=== PATIENT | female | born 1950 | race American Indian/Alaskan Native ===

== ENCOUNTER 2018-05-17 15:22 | Outpatient (CLI) | payer OTHER | END 2018-05-17 15:23 | disposition home or self-care (01) | LOC: LABHHL 15:22 | PROVIDERS: ATTEND Surgery | DX: N63.20 Unspecified lump in the left breast, unspecified quadrant (principal) | CPT/HCPCS: 88305; 88342; 88361 ==

== ENCOUNTER 2018-05-29 09:44 | Outpatient (CLI) | payer MEDICARE ==
--- NOTE | 2018-05-29 16:59 | Magnetic Resonance Report ---
BILATERAL BREAST MRI WITHOUT AND WITH CONTRAST: 05/29/18 09:44:00 CLINICAL: Newly diagnosed left breast cancer. Status post left ultrasound guided needle biopsy 09/15/18 with pathologic diagnosis of invasive ductal carcinoma NOS, Nunda grade III. COMPARISON:05/14/18 bilateral mammogram. TECHNIQUE: Axial 1.0-mm T1 without, axial high resolution 2.0-mm T2 and axial 1.0-mm dynamic Vibrant high-resolution postcontrast T1 fat saturation sequences on a 1.5 Joleen magnet. The examination was performed with an 8 channel dedicated [employer] breast coil. Post processing with CAD and subtraction was performed on an [email or web address] workstation. 15.0 cc of Multihance was injected without incident for the contrast portion of the exam. Consent was obtained prior to the administration of the contrast. FINDINGS: Right: Minimal background parenchymal enhancement. No mass or suspicious enhancement. No suspicious lymph nodes. Left: Mild background parenchymal enhancement. The known cancer is an irregular enhancing mass at 1 o'clock 7.3 cm from the nipple measuring 3.2 x 2.4 x 2.6 cm. It contains a biopsy clip and demonstrates heterogeneous enhancement with mixed kinetics, 358% peak enhancement, 13% type I persistent, 30% type II plateau and 57% type III washout. No other mass or suspicious enhancement of the left breast. A single suspicious lymph node in the axillary tail has minimal central fat and measures 1.2 cm. IMPRESSION: 1. A 3.2 cm left breast cancer and no additional suspicious lesion of either breast. 2. One suspicious left axillary left node. RIGHT BI-RADS 1 -- Negative LEFT BI-RADS 6 -- Known Cancer
== END 2018-05-29 09:45 | disposition home or self-care (01) ==
LOC: SPVIMAG 09:44
PROVIDERS: ATTEND Surgery
DX: C50.412 Malignant neoplasm of upper-outer quadrant of left female breast (principal)
CPT/HCPCS: A9577; C8908; 77059

== ENCOUNTER 2018-06-07 09:56 | Outpatient (CLI) | payer MEDICARE ==
--- NOTE | 2018-06-07 13:40 | Ultrasound Report ---
ULTRASOUND GUIDED NEEDLE CORE BIOPSY OF A LEFT AXILLARY LYMPH NODE WITH CLIP PLACEMENT : 06/07/18 09:56:00 CLINICAL: Newly diagnosed left breast cancer with a suspicious lymph node on MRI. COMPARISON :05/29/18 MRI FINDINGS: The procedure was explained to the patient and informed consent was obtained. Ultrasound demonstrated a suspicious lymph node with a 4 mm thick cortex. The skin in the axilla was prepped with Betadine and anesthetized with 1% lidocaine. Ultrasound guided needle core biopsy of the lymph node was performed through a small dermatotomy using 2% lidocaine with epinephrine for deep anesthesia and a 18-gauge Achieve biopsy device. 3 samples were obtained and placed in formalin. A clip was deployed within the lymph node. Hemostasis was achieved with minimal pressure and a sterile dressing was applied. The patient tolerated the procedure well and there were no apparent complications. She was discharged in good condition and was given instructions for wound care and followup. IMPRESSION: Uncomplicated ultrasound-guided needle core biopsy of a left axillary lymph node with clip placement.
== END 2018-06-07 09:57 | disposition home or self-care (01) ==
LOC: SPVWC 09:56
PROVIDERS: ATTEND Surgery
DX: R59.1 Generalized enlarged lymph nodes (principal); C50.912 Malignant neoplasm of unspecified site of left female breast
CPT/HCPCS: 38505; 76942; 88305

== ENCOUNTER 2018-07-04 10:25 | Observation (INO) | payer MEDICARE ==
[2018-07-04] MEDS ORDERED: ANCEF/STERILE WATER 2 GM/20 ML IV NR (13:00)
[2018-07-04] MEDS ORDERED: LACTATED RINGERS 1,000 ML IV SCH ×2 (13:00→19:00)
[2018-07-04] MEDS ORDERED: NAROPIN O.5% ONE (14:25)
[2018-07-04] MEDS ORDERED: SUBLIMAZE IV ONE (14:25)
[2018-07-04] MEDS ORDERED: DECADRON ONE ×2 (14:26→15:44)
[2018-07-04] MEDS: VERSED IV NR ×2 (14:42→14:44)
--- NOTE | 2018-07-04 14:42 | Anesthesia Consultation ---
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 No issues with more recent anesthetics.
--- NOTE | 2018-07-04 14:45 | Anesthesia Day of Surgery ---
Anesthesia Day of Surgery - Day of Surgery Patient Examined: Yes Patient H&P Reviewed: Yes Patient is NPO: Yes
[2018-07-04] MEDS ORDERED: DIPRIVAN 10 MG/ML IV ONE (14:52)
[2018-07-04] MEDS ORDERED: XYLOCAINE MPF 2% ONE (14:52)
[2018-07-04] MEDS ORDERED: SUBLIMAZE ONE (15:53)
[2018-07-04] MEDS ORDERED: ZOFRAN ONE (16:10)
[2018-07-04] MEDS ORDERED: HEPARIN 10,000 UNITS/10 ML ONE (16:19)
[2018-07-04] MEDS ORDERED: NACL 0.9% 500 ML 0 ML ONE (16:20)
[2018-07-04] MEDS ORDERED: WATER FOR IRRIG STERILE IR ONE (17:04)
--- NOTE | 2018-07-04 18:32 | Short Stay Summary ---
Short Stay Documentation Date of service: 07/04/18 - History H&P: obtained from office - Allergies and Medications Current Medications: Allergies No Known Allergies Allergy (Verified 07/02/18 17:04) Home Medications Medication Instructions Recorded Confirmed Last Taken Type [place] Thyroid 60 mg PO DAILY 07/04/18 07/04/18 07/04/18 07:00 History Active Medications Cefazolin Sodium (Ancef/Sterile Water 2 Gm/20 Ml) 2 gm IV PREOP NR Stop: 07/04/18 23:59 Lactated Ringer's (Lactated Ringers) 1,000 mls @ 75 mls/hr IV DIRECT DEANNA Last Admin: 07/04/18 13:05 Dose: 75 mls/hr Midazolam HCl (Versed) 2 mg IV PREOP NR Stop: 07/04/18 23:59 Last Admin: 07/04/18 14:44 Dose: 1 mg - Brief post op/procedure progress note Date of procedure: 07/04/18 Pre-op diagnosis: Left breast cancer of the upper outer quadrant Post-op diagnosis: same Procedure: Left partial mastectomy and SLNB Anesthesia: GETA Findings: Left breast mass and clip present within radiograph specimen; 1 SLN Surgeon: ALINE QUIROS Estimated blood loss: minimal Pathology: list (left partial mastectomy, SLNB) Specimen disposition: to lab Condition: stable - Disposition Condition at discharge: Good Disposition: DC-01 TO HOME OR SELFCARE Short Stay Discharge Plan Activity: other (no heavy lifting) Diet: regular Wound: other (keep incision clean and dry; may shower in 48 hours; no baths, pools or lakes; wear binder; do not rub or scrub incision) Follow up with: ANAND STONE MD [Primary Care Provider] - 7 Days ALINE QUIROS MD [Staff Physician] - 7 Days
[2018-07-04] MEDS ORDERED: TYLENOL PO PRN (18:33)
[2018-07-04] MEDS ORDERED: PERCOCET 5/325 PO PRN (18:33)
[2018-07-04] MEDS ORDERED: REGLAN PO PRN (18:33)
[2018-07-04] MEDS ORDERED: ZOFRAN IV PRN (18:33)
[2018-07-04] MEDS ORDERED: SODIUM CHLORIDE FLUSH SYRINGE 10 ML IV PRN (18:33)
[2018-07-04] MEDS ORDERED: BENADRYL PO PRN (18:33)
[2018-07-04] MEDS ORDERED: MORPHINE IV PRN (18:36)
--- NOTE | 2018-07-04 18:39 | Operative Report ---
Operative Report Operative Report: Date of Service: July 04, 2018 Preoperative diagnosis: Left breast cancer of the upper outer quadrant Postoperative diagnosis: Same Procedure: Left partial mastectomy of the upper outer quadrant and SLNB Surgeon: Bridgette Garcia MD Anesthesia: General Findings: Left breast mass and clip present within radiograph specimen; x1 SLN Complications: None EBL: Minimal Disposition: PACU in good condition Indications for operative procedure: This is a 68 year old lady with newly diagnosed left breast cancer of the upper outer quadrant, Stage II [id number] ER positive. Recommendations are to proceed with a partial mastectomy and SLNB. Patient wished to proceed with the above procedure. Procedure in detail: Anesthesia placed left pectoral muscle block. Patient was then taken to the operating room. Gen. anesthesia was administered. The left nipple was injected with radioisotope. The left breast and axilla were prepped and draped in the normal sterile operative fashion. Timeout was performed. Gamma probe was inserted into the axilla. The area of hot spot was identified. A left axillary incision was made with a 15 blade knife with dissection taken down to the subcutaneous tissues. The axillary fascia was opened with the Bovie cautery. Gamma probed inserted into the axilla and one SLN was identified. All remaining counts were less than 10% of the highest count. Lymph node was sent to pathology for permanent processing. Hemostasis was obtained in the left axillary cavity. Axillary cavity was appropriately irrigated and suctioned. Hemostasis was noted. Axillary fascia was approximated and closed using interrupted 3-0 Vicryl and the skin brought together and closed using a running 4-0 Monocryl followed by skin affix. Attention was then taken towards the right breast. Known breast cancer mass of the upper outer quadrant. Ultrasound was used to cecily the area of incision. Lateral breast incision was made with a 15 blade knife and dissection taken down to subcutaneous tissues. First began raising of the superior flap with dissection take down to the pectoralis muscle, followed by raising of the medial flap, inferior flap and lateral flap with all flaps taken down to the pectoralis muscle. The breast area of concern was appropriately removed posteriorly from the pectoralis muscle with the aid of the Bovie cautery. Specimen was marked and then sent to pathology and radiology; radiograph specimen with clip and mass present. Breast cavity was irrigated and hemostasis was obtained. The posterior deep breast tissues were approximated and closed using interrupted 3-0 Vicryl. The subcutaneous tissues were approximated and closed using interrupted 3-0 Vicryl followed by closing of the skin with a running 4-0 Monocryl and skin affix. The patient tolerated surgery very well and she was awaken from anesthesia without any complication and transported to PACU in good condition.
[2018-07-04] MEDS: COLACE PO SCH (22:41)
[2018-07-05] MEDS: COLACE PO SCH (08:50)
[2018-07-05 11:51] VITALS: BP 116/64
--- NOTE | 2018-07-09 10:02 | XRay Report ---
SPECIMEN RADIOGRAPH LEFT BREAST: 07/04/18 10:25:00 CLINICAL: Surgical excision of a known cancer. FINDINGS: The targeted mass with a localizer clip is identified within the specimen. IMPRESSION: Excision of the targeted lesion.
== END 2018-07-05 13:50 | disposition home or self-care (01) ==
LOC: OR 10:25 → OB 18:33
PROVIDERS: ADMIT Surgery; ATTEND Surgery
DX: C50.412 Malignant neoplasm of upper-outer quadrant of left female breast (principal); E03.9 Hypothyroidism, unspecified; I25.2 Old myocardial infarction
CPT/HCPCS: 19301; 38525; 38792; 64450; 76098; 78800; 88307; 88333; 88342; 96374; A9541; G0378; J0690; J1100; J2250; J2405; J2704; J2795; J3010; J7120; J1644; J7040